=== PATIENT | male | born 1955 | race Asian ===

== ENCOUNTER 2017-11-17 08:04 | Day surgery (SDC) | END 2017-11-17 20:39 | disposition home or self-care (01) ==

== ENCOUNTER 2018-02-20 07:28 | Day surgery (SDC) | END 2018-02-20 11:40 | disposition home or self-care (01) ==

== ENCOUNTER 2018-10-05 14:50 | Day surgery (SDC) | payer OTHER ==
[2018-10-05] VITALS (16 sets, daily range): BP systolic 97–132; BP diastolic 40–67; PULSE 56–66; RESP 12–33; Ht 165.1 cm; Wt 78.3 kg
[~2018-10-05] VITALS: Ht 165.1 cm; Wt 78.3 kg
[~2018-10-05 14:50] MED LIST: ASPI81TA52 PO; ATOR40TA68 PO; CLOP75TA27 PO; FINA5TAB4 PO; FURO-110 PO; HYDR25TA6 PO; LOSA50TA14 PO; METO-319 PO; TAMS0.4C2 PO
[2018-10-05] MEDS ORDERED: SOD CHLORIDE 0.9% 1,000 ML IV SCH (16:30)
[2018-10-05] MEDS ORDERED: MIDAZOLAM 1 MG/ML 2 ML INJ ONE (16:39)
[2018-10-05] MEDS ORDERED: LIDOCAINE 1% (MDV) 20 ML INJ ONE (16:39)
[2018-10-05] MEDS ORDERED: IODIXANOL LOCM 100 ML BTL ONE (16:39)
[2018-10-05] MEDS ORDERED: HEPARIN 1000 UNITS/ML 10 ML INJ ONE (16:39)
[2018-10-05] MEDS ORDERED: FENTAnyl 50 MCG/ML VIAL ONE (16:40)
--- NOTE | 2018-10-05 17:26 | RADRPT ---
Vent Rate: 63 bpm RR Interval: 956 msec AL Interval: 164 msec QRS Duration: 91 msec QT Interval: 380 msec QTC Interval: 389 msec P-R-T Veteran: 97 - 68 - -66 degrees Sinus rhythm...n nonspecific ST T abn abnormal ECG Electronically Signed By: Terell Mart
== END 2018-10-05 21:35 | disposition home or self-care (01) ==
LOC: SDS 14:50
PROVIDERS: ATTEND Thoracic Surgery (Cardiothoracic Vascular Surgery)
DX: I73.9 Peripheral vascular disease, unspecified (principal); I10 Essential (primary) hypertension; E11.9 Type 2 diabetes mellitus without complications
CPT/HCPCS: 36200; 71045; 75630; 80053; 82962; 85025; 85610; 85730; 93005; C1769; C1887; C1894; J1644; J2250; J3010; Q9967; Z7610